=== PATIENT | male | born 1990 | race Caucasian/White ===

== ENCOUNTER → 2018-07-02 | Outpatient (CLI) | payer OTHER ==
[~2018-07-02] MED LIST: ATOM80CA3 PO; DIPH-1 PO; ESOM40CA42 PO; HYDR-3503 PO; HYDR-389 PO; NAPR500T75 PO; NO ROUTINE MEDS; ONDA4TAB PO; ONDA8TAB98 PO; OXYC-865 PO; TAMS0.4C25 PO
--- NOTE | 2018-07-02 09:53 | RADIOLOGY IMAGING REPORT ---
FACILITY: [facility] PATIENT NAME: aZid Waldrop : 1990 MR: [id number] V: [id number] EXAM DATE: ORDERING PHYSICIAN: MERLIN OLIVIA TECHNOLOGIST: Location: [facility] - [place] Patient: Zaid Waldrop : 1990 Visit/Account:[id number] Date of Sevice: 07/02/2018 EXAMINATION: CT head without IV contrast HISTORY: Headache for 10 weeks, right eye pressure, intermittent coordination difficulty in bilatera l lower extremities. COMPARISON: None. TECHNIQUE: Contiguous axial images were obtained from the skull base to the vertex without intraven ous contrast. Sagittal and coronal reformatted images are also submitted. One of the following dose optimization techniques was utilized in the performance of this exam: Autom ated exposure control; adjustment of the mA and/or kV according to the patient's size; or use of an i terative reconstruction technique. Specific details can be referenced in the facility's radiology C T exam operational policy. FINDINGS: Brain volume: Normal. Ventricles: Normal. Acute ischemic changes: None. Hemorrhage: No acute intracranial hemorrhage. Masses/edema: None. Rowland-white: Negative. White matter: Normal. Vessels: Negative. Extra-axial: Negative. Calvarium/scalp: Negative. Skull base/visualized face: Negative. 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 IMPRESSION: 1. No intracranial mass lesion or hemorrhage. No CT evidence of acute infarct. 2. 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 Report Dictated By: Frances Black MD at 07/02/2018 9:45 AM Report E-Signed By: Frances Black MD at 07/02/2018 9:48 AM WSN:[id number]
== END ==
LOC: CT 01:14
PROVIDERS: ATTEND Nurse Practitioner Family
DX: J34.2 Deviated nasal septum (principal); R51 Headache
CPT/HCPCS: 70450